=== PATIENT | male | born 1960 | race Caucasian/White ===

== ENCOUNTER 2023-05-29 09:12 | Outpatient (AMB) | payer BC, SELFPAY ==
--- NOTE | 2023-05-29 09:35 | AM.OFFWIN_ITS ---
Intake Vital Signs 05/29/23 09:47 BP 122/68 Blood Pressure Location Rt brachial Position Sitting Pulse 62 Pulse Source Pulse Oximeter Temp 98.3 F Temp Source Oral Pulse Oximetry (%) 98 Oxygen Delivery Method Room Air Intake Visit Reasons: EST/Sinus infection ([phone]) Intake Note: pt is here for c.o possible sinus infection 2 weeks Patient Tobacco Use Status: Never used Tobacco Allergies amoxicillin [From Augmentin] Allergy (Mild, Verified 05/29/23 09:56) Hives clavulanic acid [From Augmentin] Allergy (Mild, Verified 05/29/23 09:56) Hives Medication List - Last Reconciled 05/29/23 by Brianna Hoskins CNP atorvastatin 20 mg PO BEDTIME timolol maleate 0.5% drps ophthalmic (eye) HPI HPI Comments History of Present Illness Details 63-year-old male presents to walk-in [facility] with complaint of sinus pressure, headache, cough,post nasal drip, and left ear pain x 1 week, he is also c/o difficulty breathing through his nose at night. He denies fever, chills, CP, SOB, GI or symptoms. [facility] Social History Patient Tobacco Use Status: Never used Tobacco Review of Systems Const All systems reviewed & are unremarkable except as noted in HPI and below Physical Exam Vital Signs: Last Vital Signs Temp 98.3 F 05/29/23 09:47 Pulse 62 05/29/23 09:47 BP 122/68 05/29/23 09:47 Pulse Ox 98 05/29/23 09:47 Oxygen Delivery Method Room Air 05/29/23 09:47 Const General: cooperative and no acute distress Nutritional Appearance: average body habitus Orientation/consciousness: patient oriented x3 Limitations: no limitations HEENT Ears: hearing grossly normal bilaterally and TM's normal bilaterally General nose exam: Normal nasal mucous membranes and turbinates present and Nasal discharge present bloody on the left Face and sinus: Yes sinus tenderness Mouth: moist mucous membranes Throat: Yes uvula midline, Yes abnormal tonsil (erythematous), No peritonsillar mass, Yes postnasal drainage and No uvular edema Neck Neck: Yes normal visual inspection and Yes supple Lymphatic: lymphedema (bilateral cervical ) Chest Chest palpation & inspection: normal inspection of the chest and no crepitus Resp Effort & Inspection: Actively coughing Quality: productive Auscultation: rhonchi and wheezes expiratory wheezes and upper bilaterally Cardio Rate: regular rate Rhythm: regular rhythm Heart sounds: S1 normal heart sound present and S2 normal heart sound present Peripheral pulses: Peripheral pulses 2+ throughout GI Inspection: Yes normal to inspection Palpation (GI): Soft to palpation and nontender Auscultation: normal bowel sounds General: Yes no CVA tenderness Back/Spine/Pelvis Back: no CVA tenderness Skin General skin exam: no rashes or lesions noted and turgor normal Neuro General: patient oriented x3, gait normal, moves all extremities and no focal motor deficits Extrem General: Yes normal to inspection, Yes capillary refill normal and Yes no clubbing, cyanosis or edema Assessment & Plan Assessment & Plan (1) Upper respiratory infection: Code(s): J06.9 - Acute upper respiratory infection, unspecified Qualifiers: URI type: unspecified URI Qualified Code(s): J06.9 - Acute upper respiratory infection, unspecified Plan: 63-year-old male seen in walk-in clinic for 1 week symptoms of sinus pressure, headache, cough,post nasal drip, and left ear pain. Covid/Flu/RSV negative. Will treat with Fluids, Rest, warm tea with honey, over the counter cold remedies, Flonase nasal spray and Z-pack, 2 tabs po today, followed by 1 tab po qd x 4 days, encouraged to take with food to reduce GI upset. Instructed to return to office with any worsening or unresolved symptoms. Orders: Orders SARS-CoV2/FLU/RSV Today R09.89 - Other specified symptoms and signs involving the circulatory and respiratory systems Medications: New azithromycin For 250 mg dose pack: take 500 mg today (day 1), then 250 mg for 4 days (days 2-5) PO 6 tabs 0RF J06.9 - Acute upper respiratory infection, unspecified Coding Level of Care Code Est Pt Level 3 (83432) Diagnoses Upper respiratory tract infection, unspecified type J06.9 URI type: unspecified URI
[2023-05-29 09:47] VITALS: BP 122/68; PULSE 62; TEMP 36.8; O2SAT 98
== END 2023-05-29 10:42 | disposition home or self-care (01) ==
PROVIDERS: Visit Provider Nurse Practitioner Acute Care
DX: J06.9 Acute upper respiratory infection, unspecified (principal)
CPT/HCPCS: 99213

== ENCOUNTER 2023-05-29 10:36 | Outpatient (REF) | payer BC, SELFPAY ==
[2023-05-29 12:17] LABS: Influenza A PCR NEGATIVE (Negative); Influenza B PCR NEGATIVE (Negative); Resp Syncy Virus RNA Qual PCR NEGATIVE (Negative); SARS COV2 PCR INHOUSE NEGATIVE (Negative)
== END 2023-05-29 10:37 | disposition home or self-care (01) ==
LOC: HO.LAB 10:36
PROVIDERS: Visit Provider Nurse Practitioner Acute Care
DX: Z11.52 Encounter for screening for COVID-19 (principal); Z20.822 Contact with and (suspected) exposure to COVID-19; R09.89 Other specified symptoms and signs involving the circulatory and respiratory systems
CPT/HCPCS: 0241U

== ENCOUNTER 2024-03-13 13:49 | Outpatient (REF) | payer BC, SELFPAY ==
--- NOTE | ~2024-03-13 | XR_ITS ---
EXAMINATION: XR CHEST CLINICAL INFORMATION: Cough. COMPARISON: None available. TECHNIQUE: 2 views of the chest were obtained. FINDINGS: The lungs are clear. The cardiomediastinal silhouette is normal in size. There is no pleural effusion or pneumothorax. No acute osseous abnormality. XR/XR chest 2V IMPRESSION: No acute cardiopulmonary findings. Electronically signed by: Uday Gold MD 03/13/2024 03:54 PM [facility]
== END 2024-03-13 13:50 | disposition home or self-care (01) ==
LOC: HO.HMGCX 13:49
PROVIDERS: PCP Family Medicine; Visit Provider Physician Assistant
DX: R05.9 Cough, unspecified (principal)
CPT/HCPCS: 71046

== ENCOUNTER 2024-03-13 13:49 | Outpatient (AMB) | payer BC, SELFPAY ==
[2024-03-13 13:53] VITALS: BP 142/80; PULSE 69; TEMP 37.2; O2SAT 97; BMI 31.2
--- NOTE | 2024-03-13 13:53 | AM.OFFWIN_ITS ---
Intake Vital Signs 03/13/24 13:53 Height 5 ft 4 in Weight 182 lb BMI 31.2 BP 142/80 H Blood Pressure Location Rt brachial Position Sitting Pulse 69 Pulse Source Pulse Oximeter Temp 98.9 F Temp Source Oral Pulse Oximetry (%) 97 Intake Visit Reasons: EP sinus infection Intake Note: pt is here for possible sinus infection, ongoing since 1 week ago Patient Tobacco Use Status: Never used Tobacco Allergies amoxicillin [From Augmentin] Allergy (Mild, Verified 03/13/24 13:54) Hives clavulanic acid [From Augmentin] Allergy (Mild, Verified 03/13/24 13:54) Hives Do you need a note to return to daycare/school/sports/work: No HPI HPI Comments History of Present Illness Details Patient is a 63-year-old male complaining of 7 days of a ?sinus infection?. He tells me his symptoms are of productive cough with yellow and green sputum, head congestion, headache, sinus pain and pressure and occasional ear pain which is worse when he coughs. He denies any fevers, shortness of breath, wheezing or chest pain. He is able to eat and drink normally. He has tried taking Tylenol and DayQuil with no relief in his symptoms. He did not test at home for COVID. He does not have any sick contacts at home or work that he is aware of. [facility] Social History Patient Tobacco Use Status: Never used Tobacco Review of Systems Const All systems reviewed & are unremarkable except as noted in HPI and below Physical Exam Vital Signs: Last Vital Signs Temp 98.9 F 03/13/24 13:53 Pulse 69 03/13/24 13:53 BP 142/80 H 03/13/24 13:53 Pulse Ox 97 03/13/24 13:53 BMI result Body Mass Index 31.2 Const General: cooperative, healthy appearing, comfortable and no acute distress Orientation/consciousness: patient oriented x3 Limitations: no limitations HEENT Head: Yes normal to inspection Ears: hearing grossly normal bilaterally, external ears normal and unable to visualize TM bilaterally (Cerumen blockage) General nose exam: Normal external nose present, Normal nares present and No nasal discharge present Face and sinus: Yes normal facial exam and Yes sinus tenderness Mouth: Normal oral and palatal mucosa present and moist mucous membranes Throat: Yes tonsils normal, Yes uvula midline and Yes posterior oropharynx abnormal (Erythema) Eyes General: appearance normal, both eyes and all related structures Neck Neck: Yes normal visual inspection Resp Effort & Inspection: normal respiratory effort, able to speak in complete sentences, no respiratory distress, not tachypneic, no tripod positioning and no use of accessory muscles Auscultation: wheezes scattered wheezes, diminished lung sounds and vesicular breath sounds diffuse Cardio Rate: regular rate Rhythm: regular rhythm Heart sounds: normal S1 and S2 Skin General skin exam: no rashes or lesions noted Neuro General: patient oriented x3 Extrem General: Yes normal to inspection and Yes no clubbing, cyanosis or edema Assessment & Plan Assessment & Plan (1) Upper respiratory infection: Code(s): J06.9 - Acute upper respiratory infection, unspecified Qualifiers: URI type: unspecified URI Qualified Code(s): J06.9 - Acute upper respiratory infection, unspecified Plan: Vital signs are stable and patient is well-appearing, however with his lung sounds being dim, slightly wheezy and vesicular, I will get a chest x-ray. He also had sinus tenderness, so I am prescribing 40 mg of prednisone for 5 days. Discussed the risks and benefits of prednisone. Also recommended he use Flonase daily and explained how to use the medication properly. Sent flu COVID and RSV testing as well Plan See above Orders: Orders XR chest 2V Today R05.9 - Cough, unspecified SARS-CoV2/FLU/RSV Today J06.9 - Acute upper respiratory infection, unspecified Medications: New prednisone 40 mg (2 x 20 mg) PO DAILY 10 tabs 0RF Coding Level of Care Code New Pt Level 4 (75527) Diagnoses Upper respiratory tract infection, unspecified type J06.9 URI type: unspecified URI
== END 2024-03-13 14:39 | disposition home or self-care (01) ==
PROVIDERS: Visit Provider Physician Assistant
DX: J06.9 Acute upper respiratory infection, unspecified (principal)

== ENCOUNTER 2024-03-13 14:27 | Outpatient (REF) | payer BC, SELFPAY ==
[2024-03-13 18:08] LABS: Influenza A PCR NEGATIVE (Negative); Influenza B PCR NEGATIVE (Negative); Resp Syncy Virus RNA Qual PCR NEGATIVE (Negative); SARS COV2 PCR INHOUSE NEGATIVE (Negative)
== END 2024-03-13 14:28 | disposition home or self-care (01) ==
LOC: HO.LAB 14:27
PROVIDERS: Visit Provider Physician Assistant
DX: J06.9 Acute upper respiratory infection, unspecified (principal)
CPT/HCPCS: 0241U

== ENCOUNTER 2024-04-18 10:51 | Outpatient (REF) | payer BC, SELFPAY ==
--- NOTE | ~2024-04-18 | XR_ITS ---
EXAMINATION: XR LEFT SHOULDER CLINICAL INFORMATION: Pain in left shoulder M25.512. COMPARISON: None available TECHNIQUE: Three views of the left shoulder. FINDINGS: Ill-defined supraspinatus calcific tendinitis. Mild acromioclavicular and glenohumeral osteoarthritis. No fracture or malalignment. XR/XR shoulder LT min 2V IMPRESSION: Supraspinatus calcific tendinitis. Mild osteoarthritis. Electronically signed by: Surya Mcmahon MD 05/16/2024 04:17 PM [facility]
== END 2024-04-18 10:52 | disposition home or self-care (01) ==
LOC: HO.HMGCX 10:51
PROVIDERS: PCP Family Medicine; Visit Provider Internal Medicine
DX: M25.512 Pain in left shoulder (principal)
CPT/HCPCS: 73030

== ENCOUNTER 2024-04-18 10:51 | Outpatient (AMB) | payer BC, SELFPAY ==
--- NOTE | 2024-04-18 11:43 | MHC.OFFWIV ---
Intake Vital Signs 04/18/24 11:46 Weight 189 lb BP 130/90 H Blood Pressure Location Rt brachial Position Sitting Pulse 51 Pulse Source Pulse Oximeter Pulse Oximetry (%) 98 Oxygen Delivery Method Room Air Intake Visit Reasons: EP-lt shoulder pain Intake Note: Patient here for left shoulder pain that started in february. Patient Tobacco Use Status: Never used Tobacco Allergies amoxicillin [From Augmentin] Allergy (Mild, Verified 04/18/24 11:47) Hives clavulanic acid [From Augmentin] Allergy (Mild, Verified 04/18/24 11:47) Hives Medication List - Last Reconciled 04/18/24 by Savita Still MD atorvastatin 20 mg PO BEDTIME diclofenac sodium 75 mg PO BID 10 days prednisone 20 mg PO DAILY 5 days timolol maleate 0.5% ophthalmic (eye) Do you need a note to return to daycare/school/sports/work: No HPI EP-lt shoulder pain HPI Details Chief Complaint Patient presents with persistent left shoulder pain. History of Present Illness The patient is a 64-year-old male presenting with left shoulder pain. The pain began in February and he is unable to identify any specific triggering event. It significantly affects his ability to perform activities like dressing and lifting his arm above shoulder height. At times, the shoulder feels as though it locks up, forcing him to use his right hand to lift the left arm. 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 The patient describes the pain as very sore, especially at the back of the shoulder. Despite attempts at self-care, including the use of [id number] medications such as Tylenol, ibuprofen, he reports minimal relief. Currently, he is on vacation for the rest of the week, allowing him to rest. There have been no primary care consultations specific to the shoulder pain, though he does have a physical scheduled in June with his primary care doctor Plan For the patient?s left shoulder pain, I plan to conduct an X-ray to ensure the structural integrity of the shoulder is intact, given the patient's occupational activities and difficulty in arm movement. I will prescribe medication to help alleviate inflammation and recommend minimizing the use of the affected shoulder to prevent worsening of a potential tendon injury. Use of heavy equipment and continued manual labor should be avoided during the recovery period, as advised. The patient has been informed of the possibility of needing further evaluation by an mental health program specialist if symptoms persist, despite initial management and rest. Additionally, he should follow up with his primary care provider to monitor progress and reevaluate the condition. [facility] Social History Patient Tobacco Use Status: Never used Tobacco Review of Systems Const All systems reviewed & are unremarkable except as noted in HPI and below Physical Exam Vital Signs: Last Vital Signs Pulse 51 04/18/24 11:46 BP 130/90 H 04/18/24 11:46 Pulse Ox 98 04/18/24 11:46 Oxygen Delivery Method Room Air 04/18/24 11:46 Const General: no acute distress Orientation/consciousness: patient oriented x3 Eyes General: appearance normal, both eyes and all related structures Resp Effort & Inspection: normal respiratory effort and able to speak in complete sentences Neuro General: patient oriented x3 Extrem Shoulder/upper arm images: 1. Minimal pain with palpation, range of motion limited secondary to pain to 45 degrees, elbow and wrist range of motion intact motor strength 5 x 5 sensory intact, neck is supple, vascular intact Psych Mental Status: mental status grossly normal Assessment & Plan Assessment & Plan (1) Shoulder pain, left: Code(s): M25.512 - Pain in left shoulder Qualifiers: Chronicity: acute Qualified Code(s): M25.512 - Pain in left shoulder Plan Chief Complaint Patient presents with persistent left shoulder pain. History of Present Illness The patient is a 64-year-old male presenting with left shoulder pain. The pain began in February and he is unable to identify any specific triggering event. It significantly affects his ability to perform activities like dressing and lifting his arm above shoulder height. At times, the shoulder feels as though it locks up, forcing him to use his right hand to lift the left arm. 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 The patient describes the pain as very sore, especially at the back of the shoulder. Despite attempts at self-care, including the use of [id number] medications such as Tylenol, ibuprofen, he reports minimal relief. Currently, he is on vacation for the rest of the week, allowing him to rest. There have been no primary care consultations specific to the shoulder pain, though he does have a physical scheduled in June with his primary care doctor Plan For the patient?s left shoulder pain, I plan to conduct an X-ray to ensure the structural integrity of the shoulder is intact, given the patient's occupational activities and difficulty in arm movement. I will prescribe medication to help alleviate inflammation and recommend minimizing the use of the affected shoulder to prevent worsening of a potential tendon injury. Use of heavy equipment and continued manual labor should be avoided during the recovery period, as advised. The patient has been informed of the possibility of needing further evaluation by an mental health program specialist if symptoms persist, despite initial management and rest. Additionally, he should follow up with his primary care provider to monitor progress and reevaluate the condition. Orders: Orders XR shoulder LT min 2V Today M25.512 - Pain in left shoulder Medications: New diclofenac sodium Do not take it with any other pain medication, take this medication with food 75 mg PO BID 20 tabs 0RF pain 10 days prednisone 20 mg PO DAILY 5 tabs 0RF 5 days Coding Level of Care Code Est Pt Level 3 (78645) Diagnoses Acute pain of left shoulder M25.512 Chronicity: acute
[2024-04-18 11:46] VITALS: BP 130/90; PULSE 51; O2SAT 98
== END 2024-04-18 13:00 | disposition home or self-care (01) ==
PROVIDERS: PCP Family Medicine; Visit Provider Internal Medicine
DX: M25.512 Pain in left shoulder (principal)

== ENCOUNTER 2024-09-26 11:55 | Outpatient (AMB) | payer BC, SELFPAY ==
[2024-09-26 13:07] VITALS: BP 140/90; PULSE 55; O2SAT 97
--- NOTE | 2024-09-26 13:07 | MHC.OFFWIV ---
Intake Vital Signs 09/26/24 13:07 Weight 188 lb BP 140/90 H Blood Pressure Location Rt brachial Position Sitting Pulse 55 Pulse Source Pulse Oximeter Pulse Oximetry (%) 97 Oxygen Delivery Method Room Air Intake Visit Reasons: EP-lt side hip/femur pain Intake Note: Patient here for left hip pain that has been bothersome for a couple of weeks on and off. Patient Tobacco Use Status: Never used Tobacco Allergies amoxicillin [From Augmentin] Allergy (Mild, Verified 09/26/24 13:08) Hives clavulanic acid [From Augmentin] Allergy (Mild, Verified 09/26/24 13:08) Hives Do you need a note to return to daycare/school/sports/work: No HPI HPI Comments History of Present Illness Details History of Present Illness - The patient is a 64-year-old male presenting with left hip joint pain x 2 days, he tells me it is right where the femur meets the hip. - Pain started postprandial yesterday when rising from a seated position. - Localization to the femoral head and hip joint described as severe and migratory. - Exacerbation occurs with twisting of the leg and walking, leading to initial movement pain but subsiding with continued activity. - Temporary relief obtained with Advil, but relieves insufficiently for an extended period. - No trauma history relevant to the joint, and no sensory deficits or autonomic dysfunction noted. - Night-time pain is sharp, disturbing sleep, with historical context including arthritis and previous left inguinal hernia repair. - patient declined /hernia exam Physical Exam General: Cooperative, healthy appearing, comfortable, no acute distress and well developed Orientation: Patient oriented x3 Limitations: Pain in the left hip joint area, worse with walking and twisting the leg Head: Normal to inspection Ears: Hearing grossly normal bilaterally Nose: Normal External nose present Face and sinus: Normal facial exam Eyes: Appearance normal, both eyes and all related structures Neck: Normal visual inspection and Yes full ROM Respiratory: Normal respiratory effort and able to speak in complete sentences. Skin: No rashes or lesions noted Neuro: Patient oriented x3, normal gait Extremities: Negative straight leg test on the left side, no ttp lateral hip, full ROM left side. [facility] Social History Patient Tobacco Use Status: Never used Tobacco Review of Systems Const All systems reviewed & are unremarkable except as noted in HPI and below Physical Exam Vital Signs: Last Vital Signs Pulse 55 09/26/24 13:07 BP 140/90 H 09/26/24 13:07 Pulse Ox 97 09/26/24 13:07 Oxygen Delivery Method Room Air 09/26/24 13:07 Assessment & Plan Assessment & Plan (1) Acute pain of left hip: Code(s): M25.552 - Pain in left hip Plan: Meloxicam will be prescribed for pain management, directing the patient to avoid additional NSAIDs and consider Tylenol if needed. An ultrasound is suggested if pain persists post-treatment to examine for potential left inguinal hernia recurrence. Thorough education on incarcerated and strangulated hernias was given to the patient as well as instruction is provided for recognizing severe hernia symptoms requiring emergent care at the ED. The patient affirmed understanding of the plan and will monitor the treatment response, consulting further if symptoms persist. Patient was informed and verbally consented to the use of an ambient scribe for clinic note documentation during this visit. Medications: New meloxicam 15 mg PO DAILY 15 tabs 0RF Coding Level of Care Code New Pt Level 3 (34962) Diagnoses Acute pain of left hip M25.552
== END 2024-09-26 14:07 | disposition home or self-care (01) ==
PROVIDERS: PCP Family Medicine; Visit Provider Physician Assistant
DX: M25.552 Pain in left hip (principal)

== ENCOUNTER → 2024-09-26 11:55 | Outpatient (BNVA) | payer BC, SELFPAY | PROVIDERS: PCP Family Medicine; Visit Provider Physician Assistant ==

== ENCOUNTER 2024-12-22 07:06 | Outpatient (AMB) | payer BC, SELFPAY ==
[2024-12-22 07:20] VITALS: BP 132/64; PULSE 71; TEMP 36.9; O2SAT 95; BMI 31.9
--- NOTE | 2024-12-22 07:20 | AM.OFFWIN_ITS ---
Intake Vital Signs 12/22/24 07:20 Height 5 ft 4 in Weight 186 lb 2 oz BMI 31.9 BP 132/64 Blood Pressure Location Rt brachial Pulse 71 Temp 98.5 F Temp Source Oral Pulse Oximetry (%) 95 Oxygen Delivery Method Room Air Intake Visit Reasons: EP Mid abdominal pain, hardness, black stool Patient Tobacco Use Status: Never used Tobacco Travel Director Required: No Allergies amoxicillin (From Augmentin) Allergy (Mild, Verified 12/22/24 07:23) Hives clavulanic acid (From Augmentin) Allergy (Mild, Verified 12/22/24 07:23) Hives Do you need a note to return to daycare/school/sports/work: No HPI HPI Comments History of Present Illness Details This is a 64-year-old male with a past medical history of glaucoma and hyperlipidemia presenting for evaluation of abdominal pain and black stool. Patient states that he has had 3 days of epigastric pain that he describes as a 9/10 sharp and aching pain. Patient states at times he has to lie in a position due to the pain. Patient has been taking Tylenol only without relief of his discomfort. Patient denies any previous abdominal surgical history. Patient does report postprandial nausea with burping but denies having any fevers, chills, vomiting, dysuria or diarrhea. Patient's last bowel movement was yesterday and he describes it as hard and black. Patient denies having any previous dark or black stools. [facility] Social History Patient Tobacco Use Status: Never used Tobacco Review of Systems Const All systems reviewed & are unremarkable except as noted in HPI and below Reports no additional complaints, Denies chills, Denies fatigue, Denies fever(s), Denies lethargy, Denies malaise and Denies weakness Card Reports no additional complaints, Denies chest pain and Denies dyspnea Resp Denies dyspnea GI Reports abdominal pain, Reports belching, Reports melena, Denies bloating, Denies hematochezia, Reports change in bowel habits, Denies excessive flatus, Denies diarrhea, Reports nausea and Denies vomiting Reports no additional complaints and Denies dysuria Musc Reports no additional complaints Skin/Breast Reports system reviewed and no additional complaints, except as documented Neuro Reports no additional complaints and Denies weakness Psych Reports no additional complaints Endo Denies fatigue Physical Exam Vital Signs: Last Vital Signs Temp 98.5 F 12/22/24 07:20 Pulse 71 12/22/24 07:20 BP 132/64 12/22/24 07:20 Pulse Ox 95 12/22/24 07:20 Oxygen Delivery Method Room Air 12/22/24 07:20 BMI result Body Mass Index 31.9 Const General: cooperative, comfortable, no acute distress, well developed and alert; No ill appearing or lethargic Nutritional Appearance: well nourished Orientation/consciousness: patient oriented x3 and No lethargic Limitations: no limitations Cardio Rate: regular rate Rhythm: regular rhythm GI Palpation (GI): Soft to palpation, Tenderness to palpation present (GI) in the epigastrum and periumbilically; not in the LLQ, not in the RLQ, not in the LUQ and not in the RUQ, no guarding and no pulsatile masses Auscultation: normal bowel sounds Rectal Exam - Male: Yes deferred General: Yes bladder normal to palpation Skin General skin exam: no rashes or lesions noted Neuro General: patient oriented x3 Psych Appearance: grossly normal Mental Status: mental status grossly normal Insight: Good insight present (Psych) Judgement: Good judgement present (Psych) Assessment & Plan Assessment & Plan (1) Dark stools: Comment: Patient's symptoms likely related to peptic ulcer disease. Patient is not hypoxic or tachycardic and abdomen is not acute requiring immediate intervention. Patient is well-appearing and there is no guarding upon examination of the abdomen. Code(s): R19.5 - Other fecal abnormalities Plan: Colace twice daily for the next 10 days. (2) Epigastric pain: Comment: Patient's symptoms likely related to peptic ulcer disease. Patient will be discharged home with Zofran as well as omeprazole to be taken once daily for the next 2 weeks. Patient will go to the emergency department for any worsening symptoms. Code(s): R10.13 - Epigastric pain Plan: Omeprazole 40 mg once daily times 14 days, Zofran q.6 hours PRN nausea. Follow up with PCP within 7-10 days. Medications: New omeprazole 40 mg PO DAILY 14 caps 0RF docusate sodium (Colace) 100 mg PO BID 20 caps 0RF ondansetron 4 mg PO Q6H PRN 10 tabs 0RF nausea and vomiting Coding Level of Care Code Est Pt Level 4 (21972) Diagnoses Dark stools R19.5 Epigastric pain R10.13 Time Spent (min) 20
== END 2024-12-22 07:57 | disposition home or self-care (01) ==
PROVIDERS: PCP Family Medicine; Visit Provider Physician Assistant
DX: R19.5 Other fecal abnormalities (principal); R10.13 Epigastric pain